=== PATIENT | female | born 1995 | race African-American/Black ===

== ENCOUNTER 2017-02-03 09:45 | Emergency (ER) | payer MEDICAID ==
[~2017-02-03] VITALS: Ht 172.7 cm; Wt 117.9 kg
[~2017-02-03 09:45] MED LIST: CEFD300C37 PO; DOCU-30 PO; FERR325T20 PO; FURO20TA3 PO; HYDR-3240 PO; IBUP-1222 PO; LABE100T3 PO; LABE200T3 PO; PREN1TAB62 PO
[2017-02-03 10:46] LABS: BLOOD UREA NITROGEN 11 mg/dL (7-18)
[2017-02-03 12:12] VITALS: BP 121/79
== END 2017-02-03 12:13 | disposition home or self-care (01) ==
LOC: ED 11:26
DX: O20.0 Threatened abortion (principal); O16.1 Unspecified maternal hypertension, first trimester; Z3A.01 Less than 8 weeks gestation of pregnancy
CPT/HCPCS: 36415; 76801; 80048; 81001; 82040; 84702; 85025; 86901; 87086; 99285

== ENCOUNTER 2017-04-04 21:23 | Emergency (ER) | payer MEDICAID, OTHER ==
[~2017-04-04] VITALS: Ht 175.3 cm; Wt 118.5 kg
[~2017-04-04 21:23] MED LIST changes: +DOCU-131 PO; -DOCU-30 PO; +FERR325T18 PO; -FERR325T20 PO
[2017-04-04 22:16] LABS: HEMATOCRIT 35.6 % (34.6-47.8); WHITE BLOOD COUNT 6.6 x10^3/uL (3.4-10)
[2017-04-04 22:26] LABS: BLOOD UREA NITROGEN 6 mg/dL (7-18)
[2017-04-04 23:16] VITALS: BP 124/77
== END 2017-04-04 23:52 | disposition home or self-care (01) ==
LOC: ED 21:36
DX: O23.42 Unspecified infection of urinary tract in pregnancy, second trimester (principal); I11.0 Hypertensive heart disease with heart failure; I50.9 Heart failure, unspecified; Z3A.16 16 weeks gestation of pregnancy
CPT/HCPCS: 36415; 76805; 80048; 81001; 82040; 85025; 87086; 99285

== ENCOUNTER 2017-04-29 12:55 | Emergency (ER) | payer OTHER ==
[~2017-04-29] VITALS: Ht 172.7 cm; Wt 117.1 kg
[2017-04-29 14:13] LABS: HEMATOCRIT 35.8 % (34.6-47.8); HEMOGLOBIN 11.8 g/dL (11.7-16.4); WHITE BLOOD COUNT 7.5 x10^3/uL (3.4-10)
[2017-04-29 14:20] LABS: BLOOD UREA NITROGEN 6 mg/dL (7-18)
[2017-04-29 15:41] VITALS: BP 109/51
[2017-04-29] MEDS ORDERED: ONDANSETRON 2MG/ML, 2ML ONE (18:28)
[2017-04-29] MEDS ORDERED: FAMOTIDINE 20 MG/2 ML ONE (18:28)
== END 2017-04-29 15:43 | disposition home or self-care (01) ==
LOC: ED 14:14
DX: O23.42 Unspecified infection of urinary tract in pregnancy, second trimester (principal); O99.352 Diseases of the nervous system complicating pregnancy, second trimester; R55 Syncope and collapse; Z3A.19 19 weeks gestation of pregnancy
CPT/HCPCS: 36415; 80048; 81001; 82040; 85025; 87086; 93005; 99285

== ENCOUNTER 2017-06-01 11:44 | Emergency (ER) | payer OTHER ==
[~2017-06-01] VITALS: Ht 172.7 cm; Wt 117.5 kg
[2017-06-01] MEDS ORDERED: ACETAMINOPHEN 325 MG TABLET PO ONE (12:30)
[2017-06-01] MEDS ORDERED: DIPHENHYDRAMINE 50 MG/ML, 1ML IVPush ONE (12:30)
[2017-06-01] MEDS ORDERED: SODIUM CHLORIDE FLUSH 10ML SYR IVF ONE (12:30)
[2017-06-01] MEDS ORDERED: SODIUM CHLORIDE 0.9% 1,000ML IVBOLUS ONE (12:30)
[2017-06-01] MEDS ORDERED: METOCLOPRAMIDE 5 MG/ML, 2ML IVPush ONE (12:30)
[2017-06-01 13:53] LABS: HEMATOCRIT 36.1 % (34.6-47.8); HEMOGLOBIN 12.3 g/dL (11.7-16.4); WHITE BLOOD COUNT 6.7 x10^3/uL (3.4-10)
[2017-06-01] MEDS ORDERED: ACETAMINOPHEN 325 MG TABLET ONE (13:55)
[2017-06-01] MEDS ORDERED: METOCLOPRAMIDE 5 MG/ML, 2ML ONE (13:55)
[2017-06-01] MEDS ORDERED: DIPHENHYDRAMINE 50 MG/ML, 1ML ONE (13:55)
[2017-06-01 14:03] LABS: BLOOD UREA NITROGEN 6 mg/dL (7-18)
[2017-06-01 14:06] LABS: ASPARTATE AMINO TRANSFERASE 13 U/L (15-37)
[2017-06-01 16:41] VITALS: BP 110/55
== END 2017-06-01 16:44 | disposition home or self-care (01) ==
LOC: ED 14:21
DX: O99.352 Diseases of the nervous system complicating pregnancy, second trimester (principal); G44.52 New daily persistent headache (NDPH); Z3A.24 24 weeks gestation of pregnancy
CPT/HCPCS: 36415; 76805; 80053; 81003; 85025; 96361; 96374; 96375; 99285; J1200; J2765; J7030

== ENCOUNTER 2017-09-09 21:59 | Inpatient (IN) | payer OTHER, MEDICAID ==
[~2017-09-09] VITALS: Ht 172.7 cm; Wt 127.7 kg
[2017-09-09 22:49] LABS: MICROSCOPIC INDICATED
[2017-09-09 22:56] LABS: MEAN CORPUSCULAR HEMOGLOBIN 26.7 pg (27.0-34.8); MEAN CORPUSCULAR HGB CONC 33.2 g/dL (32.4-35.8); MEAN CORPUSCULAR VOLUME 80.2 fL (80-100); MEAN PLATELET VOLUME 11.3 fL (7.4-10.4); PLATELET COUNT 141 x10^3/uL (130-400); RED BLOOD COUNT 4.13 x10^6/uL (3.82-5.3); RED CELL DISTRIBUTION WIDTH 15.2 % (9.6-15.2)
[2017-09-09 23:04] LABS: ALANINE AMINOTRANSFERASE 21 U/L (12-78); ALBUMIN 2.2 g/dL (3.4-5.0); ANION GAP 9 mmol/L (5-15); CALCIUM 8.3 mg/dL (8.5-10.1); CHLORIDE 112 mmol/L (98-107); CREATININE 0.53 mg/dL (0.55-1.02)
[2017-09-09 23:06] LABS: BILIRUBIN, DIRECT < 0.1 mg/dL (0.1-0.2)
[2017-09-09 23:07] LABS: ALKALINE PHOSPHATASE 82 U/L (45-117); BILIRUBIN,TOTAL 0.3 mg/dL (0.2-1.0); TOTAL PROTEIN 6.1 g/dL (6.4-8.2)
[2017-09-09] MEDS ORDERED: OXYTOCIN 30U/ 0.9% NaCL 500ML 500 ML IV ONE (23:21)
[2017-09-09] MEDS: D5%-LACTATED RINGERS 1,000 ML IV SCH (23:21)
[2017-09-09] MEDS ORDERED: OXYTOCIN 30U/ 0.9% NaCL 500ML 500 ML IV PRN (23:21)
[2017-09-09] MEDS ORDERED: OXYTOCIN 30U/ 0.9% NaCL 500ML 500 ML ONE (23:26)
[2017-09-09] MEDS ORDERED: NEWBORN KIT ONE (23:26)
[2017-09-09] MEDS ORDERED: TERBUTALINE 1 MG/ML, 1ML IVPush PRN ×2 (23:30)
[2017-09-09] MEDS ORDERED: FENTANYL PF 100 MCG/2ML IVPush PRN (23:30)
[2017-09-09] MEDS ORDERED: ONDANSETRON 2MG/ML, 2ML IVPush PRN (23:30)
[2017-09-09] MEDS ORDERED: CALCIUM CARBONATE 500 MG TAB.CHEW PO PRN (23:30)
[2017-09-09] MEDS ORDERED: TERBUTALINE 1 MG/ML, 1ML SQ PRN (23:30)
[2017-09-09] MEDS ORDERED: FENTANYL PF 100 MCG/2ML IV PRN (23:30)
[2017-09-10] MEDS: LACTATED RINGERS 1,000 ML IV SCH ×5 (00:04→15:32)
[2017-09-10] MEDS ORDERED: NEWBORN KIT ONE (00:05)
[2017-09-10 00:45] LABS: BASOPHILS # (AUTO) 0.02 x10^3/uL (0-0.1); BASOPHILS % (AUTO) 0 % (0-1); EOSINOPHILS # (AUTO) 0.02 x10^3/uL (0-0.4); EOSINOPHILS % (AUTO) 0 % (1-7); LYMPHOCYTES % (AUTO) 31 % (22-44); MD SCAN; MONOCYTES % (AUTO) 8 % (2-9); NEUTROPHILS # (AUTO) 4.04 x10^3/uL (1.8-6.8); NEUTROPHILS % (AUTO) 60 % (42-75)
[2017-09-10 01:01] VITALS: BP 142/69
[2017-09-10] MEDS ORDERED: MAGNESIUM SULF. PMX 20GM/500ML 500 ML IV ONE ×2 (04:57→16:01)
[2017-09-10] MEDS ORDERED: LACTATED RINGERS 1,000 ML IV PRN (04:58)
[2017-09-10] MEDS ORDERED: MAGNESIUM SULFATE PMX 4GM/100M 100 ML ONE (04:58)
[2017-09-10] MEDS ORDERED: MAGNESIUM SULFATE PMX 4GM/100M 100 ML IVPB ONE (05:00)
[2017-09-10] MEDS: MAGNESIUM SULF. PMX 20GM/500ML 500 ML IV PRN ×2 (05:29→16:08)
[2017-09-10] MEDS: D5%-LACTATED RINGERS 1,000 ML IV SCH ×2 (07:21→15:21)
[2017-09-10] MEDS ORDERED: FENTANYL/BUPIV./NS/PF 250 ML EPIDCONT SCH (07:32)
[2017-09-10] MEDS ORDERED: FENTANYL/BUPIV./NS/PF 250 ML EPIDCONT ONE (07:52)
[2017-09-10] MEDS ORDERED: BUPIVACAINE/PF 0.25% ONE (07:52)
[2017-09-10] MEDS ORDERED: NALOXONE 0.4 MG/ML, 1ML IVPush PRN (08:00)
[2017-09-10] MEDS ORDERED: EPHEDRINE 50 MG/ML, 1ML IVPush PRN (08:00)
[2017-09-10] MEDS ORDERED: LACTATED RINGERS 1,000 ML IVBOLUS PRN (08:00)
[2017-09-10] MEDS ORDERED: IBUPROFEN 600 MG TABLET PO PRN (16:00)
[2017-09-10] MEDS ORDERED: OXYcodone/APAP 5/325MG TABLET PO PRN ×2 (16:00)
[2017-09-10] MEDS ORDERED: METHYLERGONOVINE 0.2 MG/ML IM PRN (16:00)
[2017-09-10] MEDS ORDERED: ONDANSETRON 2MG/ML, 2ML IV PRN (16:00)
[2017-09-10] MEDS ORDERED: MISOPROSTOL 200 MCG TABLET PR PRN (16:00)
[2017-09-10] MEDS ORDERED: ACETAMINOPHEN 325 MG TABLET PO PRN (16:00)
[2017-09-10] MEDS ORDERED: OXYTOCIN 30U/ 0.9% NaCL 500ML 500 ML ONE (16:01)
[2017-09-10] MEDS: OXYTOCIN 30U/ 0.9% NaCL 500ML 500 ML IV SCH (18:39)
[2017-09-10] MEDS ORDERED: ACETAMINOPHEN 325 MG TABLET ONE (19:39)
[2017-09-10] MEDS: ACETAMINOPHEN 325 MG TABLET PO PRN (19:41)
[2017-09-10 19:53] VITALS: BP 155/81
[2017-09-10 20:33] VITALS: BP 149/70
[2017-09-10 23:31] VITALS: BP 132/64
[2017-09-11] MEDS ORDERED: MAGNESIUM SULF. PMX 20GM/500ML 500 ML IV ONE ×2 (01:01→12:40)
[2017-09-11] MEDS: OXYTOCIN 30U/ 0.9% NaCL 500ML 500 ML IV SCH (01:52)
[2017-09-11] MEDS: MAGNESIUM SULF. PMX 20GM/500ML 500 ML IV PRN (02:09)
[2017-09-11 03:00] VITALS: BP 140/95
[2017-09-11] MEDS ORDERED: ACETAMINOPHEN 325 MG TABLET ONE ×2 (03:59→17:46)
[2017-09-11] MEDS: ACETAMINOPHEN 325 MG TABLET PO PRN ×2 (04:01→17:48)
[2017-09-11 05:58] LABS: BASOPHILS # (AUTO) 0.01 x10^3/uL (0-0.1); BASOPHILS % (AUTO) 0 % (0-1); EOSINOPHILS # (AUTO) 0.02 x10^3/uL (0-0.4); EOSINOPHILS % (AUTO) 0 % (1-7); LYMPHOCYTES # (AUTO) 1.56 x10^3/uL (1-3.4); LYMPHOCYTES % (AUTO) 20 % (22-44); MD NO; MEAN CORPUSCULAR HEMOGLOBIN 26.8 pg (27.0-34.8); MEAN CORPUSCULAR HGB CONC 33.6 g/dL (32.4-35.8); MEAN CORPUSCULAR VOLUME 79.7 fL (80-100); MEAN PLATELET VOLUME 11.1 fL (7.4-10.4); MONOCYTES # (AUTO) 0.74 x10^3/uL (0.2-0.8); MONOCYTES % (AUTO) 9 % (2-9); NEUTROPHILS # (AUTO) 5.63 x10^3/uL (1.8-6.8); NEUTROPHILS % (AUTO) 71 % (42-75); PLATELET COUNT 139 x10^3/uL (130-400); RED BLOOD COUNT 3.83 x10^6/uL (3.82-5.3); RED CELL DISTRIBUTION WIDTH 14.9 % (9.6-15.2)
[2017-09-11 07:46] VITALS: BP 129/67
[2017-09-11 09:26] VITALS: BP 129/69
[2017-09-11] MEDS ORDERED: PRENATAL VIT/IRON/FA 1 EACH TABLET ONE (11:19)
[2017-09-11] MEDS: PRENATAL VIT/IRON/FA 1 EACH TABLET PO SCH (11:28)
[2017-09-11 11:43] VITALS: BP 135/74
[2017-09-11] MEDS ORDERED: LABETALOL 200 MG TABLET ONE (16:54)
[2017-09-11] MEDS: LABETALOL 200 MG TABLET PO SCH ×2 (16:56→17:24)
[2017-09-11 19:55] VITALS: BP 127/85
[2017-09-11] MEDS: SODIUM CHLORIDE FLUSH 3ML SYRINGE IVF SCH (21:00)
[2017-09-12] VITALS (7 sets, daily range): BP systolic 120–153; BP diastolic 79–100
[2017-09-12] MEDS: LABETALOL 200 MG TABLET PO SCH ×2 (05:33→17:57)
[2017-09-12] MEDS: SODIUM CHLORIDE FLUSH 3ML SYRINGE IVF SCH ×3 (09:00→21:48)
[2017-09-12] MEDS: PRENATAL VIT/IRON/FA 1 EACH TABLET PO SCH (09:17)
[2017-09-12] MEDS: DOCUSATE 100 MG CAPSULE PO PRN (09:17)
[2017-09-13 00:15] VITALS: BP 156/96
[2017-09-13 04:00] VITALS: BP 155/89
[2017-09-13] MEDS: LABETALOL 200 MG TABLET PO SCH (06:07)
[2017-09-13 07:55] VITALS: BP 133/85
[2017-09-13] MEDS: DOCUSATE 100 MG CAPSULE PO PRN (08:00)
[2017-09-13] MEDS: PRENATAL VIT/IRON/FA 1 EACH TABLET PO SCH (08:00)
[2017-09-13 12:35] VITALS: BP 147/87
[2017-09-13] MEDS ORDERED: IBUP-1222 PO (16:06)
== END 2017-09-13 16:48 | disposition home or self-care (01) | DRG 775 ==
LOC: LDOP 21:59 → EDIP 23:47 → LDIP 23:58 → 2NE 09-10 18:16 → 2NW 09-12 04:45
PROVIDERS: ADMIT Obstetrics & Gynecology; ATTEND Obstetrics & Gynecology
PROC: 10E0XZZ Delivery of Products of Conception, External Approach (ICD-10-PCS; principal; 2017-09-10)
PROC: 0HQ9XZZ Repair Perineum Skin, External Approach (ICD-10-PCS; 2017-09-10)
PROC: 10907ZC Drainage of Amniotic Fluid, Therapeutic from Products of Conception, Via Natural or Artificial Opening (ICD-10-PCS; 2017-09-10)
PROC: 3E033VJ Introduction of Other Hormone into Peripheral Vein, Percutaneous Approach (ICD-10-PCS; 2017-09-10)
PROC: 3E0R3BZ Introduction of Anesthetic Agent into Spinal Canal, Percutaneous Approach (ICD-10-PCS; 2017-09-10)
PROC: 00HU33Z Insertion of Infusion Device into Spinal Canal, Percutaneous Approach (ICD-10-PCS; 2017-09-10)
DX: O99.214 Obesity complicating childbirth (principal); Z68.41 Body mass index [BMI] 40.0-44.9, adult; E66.01 Morbid (severe) obesity due to excess calories; Z37.0 Single live birth; Z3A.38 38 weeks gestation of pregnancy; O70.0 First degree perineal laceration during delivery; O69.81X0 Labor and delivery complicated by cord around neck, without compression, not applicable or unspecified; O13.4 Gestational [pregnancy-induced] hypertension without significant proteinuria, complicating childbirth
CPT/HCPCS: 36415; 80053; 81001; 82248; 83735; 84550; 85025; 86850; 86900; 87086; J3490; J2590; J3010; J3475; J7120

== ENCOUNTER 2020-11-19 21:12 | Emergency (ER) | payer MEDICAID, OTHER ==
[~2020-11-19] VITALS: Ht 175.3 cm; Wt 92.0 kg
[~2020-11-19 21:12] MED LIST changes: +HYDR-2214 PO; -HYDR-3240 PO; -LABE100T3 PO; +LABE100T6 PO; -LABE200T3 PO; +LABE200T6 PO
[2020-11-19] MEDS ORDERED: KETOROLAC 30 MG/1 ML IM ONE (23:30)
[2020-11-19] MEDS ORDERED: KETOROLAC 30 MG/1 ML ONE (23:37)
[2020-11-19 23:42] VITALS: BP 121/74
== END 2020-11-19 23:48 | disposition home or self-care (01) ==
LOC: ED 23:02
DX: U07.1 COVID-19 (principal); G44.219 Episodic tension-type headache, not intractable; R42 Dizziness and giddiness; R50.9 Fever, unspecified; I11.0 Hypertensive heart disease with heart failure; I50.9 Heart failure, unspecified; R06.00 Dyspnea, unspecified
CPT/HCPCS: 71045; 99284; U0003; U0005